=== PATIENT | female | born 1955 | race Caucasian/White ===

== ENCOUNTER → 2016-07-14 | Outpatient (CLI) | payer OTHER ==
--- NOTE | 2016-07-14 12:55 | MM ---
Reason for exam: screening (asymptomatic). Last mammogram was performed 2 years and 1 month ago. History: Patient is postmenopausal. Family history of breast cancer in paternal cousin at age 35, breast cancer in mother at age 44, and breast cancer in maternal grandmother. Left US Cyst Aspiration of the left breast, September 13, 2006. Right US Cyst Aspiration of the right breast, September 13, 2006. Benign cyst aspiration of the left breast, 2002. Physical Findings: A clinical breast exam by your physician is recommended on an annual basis and results should be correlated with mammographic findings. MG 3D Screening Mammo W/Cad Bilateral CC and MLO view(s) were taken. Prior study comparison: June 05, 2014, bilateral MG diagnostic mammo w CAD [facility]. March 12, 2013, CAD bilateral diagnostic mammogram. The breast tissue is heterogeneously dense. This may lower the sensitivity of mammography. Finding #1: Stable architectural distortion in the upper outer quadrant of the right breast. Finding #2: There are typically benign round calcifications in both breasts. There is no discrete abnormality. ASSESSMENT: Benign, BI-RAD 2 RECOMMENDATION: Routine screening mammogram of both breasts in 1 year.
== END | disposition home or self-care (01) ==
LOC: RADMAMWWP 08:52
PROVIDERS: ATTEND Surgery
DX: Z12.31 Encounter for screening mammogram for malignant neoplasm of breast (principal); Z80.3 Family history of malignant neoplasm of breast
CPT/HCPCS: 77063; G0202

== ENCOUNTER → 2018-10-25 | Outpatient (CLI) | payer OTHER ==
--- NOTE | 2018-10-26 11:37 | MM ---
Reason for exam: screening (asymptomatic). Last mammogram was performed 2 years and 3 months ago. History: Patient is postmenopausal. Family history of breast cancer in paternal cousin at age 35, breast cancer in mother at age 44, and breast cancer in maternal grandmother. Left US Cyst Aspiration of the left breast, September 13, 2006. Right US Cyst Aspiration of the right breast, September 13, 2006. Benign cyst aspiration of the left breast, 2002. Physical Findings: A clinical breast exam by your physician is recommended on an annual basis and results should be correlated with mammographic findings. MG 3D Screening Mammo W/Cad Bilateral CC, MLO, and XCCL view(s) were taken. Prior study comparison: July 14, 2016, bilateral MG 3d screening mammo w/cad. June 05, 2014, bilateral MG diagnostic mammo w CAD [facility]. The breast tissue is extremely dense which could obscure a lesion on mammography. There is no discrete abnormality. No significant changes when compared with prior studies. ASSESSMENT: Negative, BI-RAD 1 RECOMMENDATION: Routine screening mammogram of both breasts in 1 year.
== END | disposition home or self-care (01) ==
LOC: RADMAMWWP 07:19
PROVIDERS: ATTEND Family Medicine
DX: Z12.31 Encounter for screening mammogram for malignant neoplasm of breast (principal); Z80.3 Family history of malignant neoplasm of breast
CPT/HCPCS: 77063; 77067

== ENCOUNTER → 2019-10-29 | Outpatient (CLI) | payer OTHER ==
--- NOTE | 2019-10-30 09:31 | MM ---
Reason for exam: additional evaluation requested from prior study. Last mammogram was performed 1 year ago. History: Patient is postmenopausal. Family history of breast cancer in paternal cousin at age 35, breast cancer in mother at age 44, and breast cancer in maternal grandmother. Left US Cyst Aspiration of the left breast, September 13, 2006. Right US Cyst Aspiration of the right breast, September 13, 2006. Benign cyst aspiration of the left breast, 2002. Physical Findings: Nurse did not find any significant physical abnormalities on exam. MG 3D Diag Mammo W/Cad [facility] Bilateral CC and MLO view(s) were taken. Prior study comparison: October 25, 2018, bilateral MG 3d screening mammo w/cad. July 14, 2016, bilateral MG 3d screening mammo w/cad. The breast tissue is heterogeneously dense. This may lower the sensitivity of mammography. There are benign appearing waxing and waning wound oval bilateral masses, greater in the right breast, typically related to cysts in this patient with prior cyst aspirations. Left upper outer quadrant posterior depth focal asymmetry improves on additional views and appears similar to the 2017 exam, precautionary left upper outer quadrant ultrasound will be performed. These results were verbally communicated with the patient and result sheet given to the patient on 10/29/19. ASSESSMENT: Incomplete: need additional imaging evaluation, BI-RAD 0 RECOMMENDATION: Ultrasound of the left breast. (attention 8-9cm from the nipple, upper outer quadrant)
--- NOTE | 2019-10-30 09:33 | USB ---
Reason for exam: additional evaluation requested from abnormal screening. History: Patient is postmenopausal. Family history of breast cancer in paternal cousin at age 35, breast cancer in mother at age 44, and breast cancer in maternal grandmother. Left US Cyst Aspiration of the left breast, September 13, 2006. Right US Cyst Aspiration of the right breast, September 13, 2006. Benign cyst aspiration of the left breast, 2002. US Breast Limited LT Technologist: Shannon Little Left limited breast ultrasound including focal area of concern, retroareolar and axilla demonstrates a 0.3 x 0.3 x 0.2cm cystic lesion too small to characterize at 1 o'clock, 6 month follow up recommended, no cystic or solid lesion seen. These results were verbally communicated with the patient and result sheet given to the patient on 10/29/19. ASSESSMENT: Probably benign, BI-RAD 3 RECOMMENDATION: Follow-up diagnostic mammogram and ultrasound of the left breast in 6 months.
== END | disposition home or self-care (01) ==
LOC: RADMAMWWP 12:41
PROVIDERS: ATTEND Surgery
DX: R92.8 Other abnormal and inconclusive findings on diagnostic imaging of breast (principal)
CPT/HCPCS: 77062; 77066

== ENCOUNTER → 2020-06-16 | Outpatient (CLI) | payer OTHER ==
--- NOTE | 2020-06-16 09:00 | MM ---
Reason for exam: follow-up at short interval from prior study. Last mammogram was performed 8 months ago. History: Patient is postmenopausal. Family history of breast cancer in paternal cousin at age 35, breast cancer in mother at age 44, and breast cancer in maternal grandmother at age 58. Left US Cyst Aspiration of the left breast, September 13, 2006. Right US Cyst Aspiration of the right breast, September 13, 2006. Benign cyst aspiration of the left breast, 2002. Physical Findings: Nurse did not find any significant physical abnormalities on exam. MG 3D Diag Mammo W/Cad LT CC and MLO view(s) were taken of the left breast. Prior study comparison: October 29, 2019, bilateral MG 3d diag mammo w/cad [facility]. October 25, 2018, bilateral MG 3d screening mammo w/cad. The breast tissue is heterogeneously dense. This may lower the sensitivity of mammography. Central posterior CC view asymmetric densities stable for 6 months. These results were verbally communicated with the patient and result sheet given to the patient on 06/16/20. ASSESSMENT: Incomplete: need additional imaging evaluation, BI-RAD 0 RECOMMENDATION: Ultrasound of the left breast.
--- NOTE | 2020-06-16 09:01 | USB ---
Reason for exam: follow-up at short interval from prior study. History: Patient is postmenopausal. Family history of breast cancer in paternal cousin at age 35, breast cancer in mother at age 44, and breast cancer in maternal grandmother at age 58. Left US Cyst Aspiration of the left breast, September 13, 2006. Right US Cyst Aspiration of the right breast, September 13, 2006. Benign cyst aspiration of the left breast, 2002. US Breast Limited LT Technologist: Shannon Little Left limited breast ultrasound including focal area of concern, retroareolar and axilla demonstrates a 0.4 x 0.3 x 0.3cm circular, cystic, benign lesion at 1 o'clock. Continued follow up of the mammographic densities. Scanned 12-3 o'clock. These results were verbally communicated with the patient and result sheet given to the patient on 06/16/20. ASSESSMENT: Probably benign, BI-RAD 3 RECOMMENDATION: Follow-up diagnostic mammogram of both breasts in 6 months. Back on schedule for October 2020.
== END | disposition home or self-care (01) ==
LOC: RADMAMWWP 06:58
PROVIDERS: ATTEND Surgery
DX: R92.8 Other abnormal and inconclusive findings on diagnostic imaging of breast (principal)
CPT/HCPCS: 77061; 77065

== ENCOUNTER → 2020-12-23 | Outpatient (CLI) | payer OTHER ==
--- NOTE | 2020-12-23 11:40 | MM ---
Reason for exam: additional evaluation requested from prior study. Last mammogram was performed 6 months ago. History: Patient is postmenopausal. Family history of breast cancer in paternal cousin at age 35, breast cancer in mother at age 44, and breast cancer in maternal grandmother at age 58. Left US Cyst Aspiration of the left breast, September 13, 2006. Right US Cyst Aspiration of the right breast, September 13, 2006. Benign cyst aspiration of the left breast, 2002. Physical Findings: Nurse did not find any significant physical abnormalities on exam. MG 3D Diag Mammo W/Cad [facility] Bilateral CC and MLO view(s) were taken. Prior study comparison: June 16, 2020, left breast MG 3d diag mammo w/cad LT. October 29, 2019, bilateral MG 3d diag mammo w/cad [facility]. October 25, 2018, bilateral MG 3d screening mammo w/cad. July 14, 2016, bilateral MG 3d screening mammo w/cad. The breast tissue is heterogeneously dense. This may lower the sensitivity of mammography. Right 8mm lateral circumscribed nodule slowly enlarging, 9-10 o'clock suspect a cyst. Superior left nodualrity is unchanged for 6 months. These results were verbally communicated with the patient and result sheet given to the patient on 12/23/20. ASSESSMENT: Incomplete: need additional imaging evaluation, BI-RAD 0 RECOMMENDATION: Ultrasound of both breasts. (right 9-10 o'clock, left entire)
--- NOTE | 2020-12-23 11:42 | USB ---
Reason for exam: additional evaluation requested from abnormal screening. History: Patient is postmenopausal. Family history of breast cancer in paternal cousin at age 35, breast cancer in mother at age 44, and breast cancer in maternal grandmother at age 58. Left US Cyst Aspiration of the left breast, September 13, 2006. Right US Cyst Aspiration of the right breast, September 13, 2006. Benign cyst aspiration of the left breast, 2002. US Breast Limited BILAT Right limited breast ultrasound including focal area of concern, retroareolar and axilla demonstrates a 0.6 x 0.6 x 0.5cm cystic lesion at 10 o'clock, mammographic correlate, benign. Left complete breast ultrasound includes all four quadrants, the retroareolar region and axilla. Finding demonstrates a 0.5 x 0.3 x 0.3cm cystic, benign lesion at 1 o'clock and a 0.5 x 0.4 x 0.5cm cystic, benign lesion at 9 o'clock. We note a strong family history. These results were verbally communicated with the patient and result sheet given to the patient on 12/23/20. ASSESSMENT: Probably benign, BI-RAD 3 RECOMMENDATION: Follow-up diagnostic mammogram of both breasts in 1 year.
== END | disposition home or self-care (01) ==
LOC: RADMAMWWP 09:40
PROVIDERS: ATTEND Surgery
DX: R92.2 Inconclusive mammogram (principal); N60.01 Solitary cyst of right breast; N60.02 Solitary cyst of left breast; Z78.0 Asymptomatic menopausal state; Z80.3 Family history of malignant neoplasm of breast
CPT/HCPCS: 77062; 77066

== ENCOUNTER → 2022-01-06 | Outpatient (CLI) | payer OTHER, MEDICARE ==
--- NOTE | 2022-01-06 12:17 | MM ---
Reason for Exam: Additional evaluation requested from prior study. Last screening mammogram was performed 12 month(s) ago. Patient History: Menarche at age 14. First Full-Term at age 28. Postmenopausal. 2002, Benign Cyst Aspiration on the left side. 09/13/2006, Cyst Aspiration on the Left side. 09/13/2006, Cyst Aspiration on the Right side. Maternal grandmother had breast cancer, age 58. Paternal cousin had breast cancer, age 35. Mother had breast cancer, age 44. Risk Values: Dawn 5 year model risk: 3.0%. NCI Lifetime model risk: 10.6%. Prior Study Comparison: 12/15/1994 Screening Mammogram, Unknown. 03/12/2013 Bilateral Diagnostic Mammogram, [facility]. 07/14/2016 Bilateral Screening Mammogram, [facility]. 10/29/2019 Bilateral Diagnostic Mammogram, [facility]. 06/16/2020 Left Diagnostic Mammogram, [facility]. 12/23/2020 Bilateral Diagnostic Mammogram, [facility]. Tissue Density: The breast tissue is heterogeneously dense. This may lower the sensitivity of mammography. Findings: Analyzed By CAD. Some fluctuating nodularity is noted suggesting a benign etiology. Areas of asymmetric density especially on the left superiorly remain unchanged. There is a new circumscribed round mass measuring 1.1 cm 10:00 far posterior left breast for which further evaluation is recommended. Overall Assessment: Incomplete: need additional imaging evaluation, BI-RAD 0 Management: Diagnostic Breast Ultrasound of the left breast. Electronically signed and approved by: Shelton Castaneda M.D. Radiologist
--- NOTE | 2022-01-06 12:20 | USB ---
Reason for Exam: Additional evaluation requested from abnormal screening. Patient History: Menarche at age 14. First Full-Term at age 28. Postmenopausal. 2002, Benign Cyst Aspiration on the left side. 09/13/2006, Cyst Aspiration on the Left side. 09/13/2006, Cyst Aspiration on the Right side. Maternal grandmother had breast cancer, age 58. Paternal cousin had breast cancer, age 35. Mother had breast cancer, age 44. Risk Values: Dawn 5 year model risk: 3.0%. NCI Lifetime model risk: 10.6%. Prior Study Comparison: 10/29/2019 Bilateral Diagnostic Mammogram, [facility]. 06/16/2020 Left Diagnostic Mammogram, [facility]. 12/23/2020 Bilateral Diagnostic Mammogram, [facility]. Findings: The whole breast of the left breast, the axilla of the left breast and the retroareolar of the left breast were scanned. A left breast ultrasound was performed including standing of the subareolar region and axilla. Dense tissues are present throughout. There is a small benign 4 mm cyst at the 6:00 position. Additional benign cyst 11:00 position, 4 cm from the nipple. There is a larger, circumscribed, minimally lobulated hypoechoic lesion measuring 1.1 x 1.1 x 0.9 cm in the far periphery of the 10:00 position, 12 cm from the nipple. No internal vascularity. Some posterior through transmission is present.. Overall Assessment: Suspicious, BI-RAD 4 Management: Ultrasound Core Biopsy of the left breast. 1.1 cm mass lesion in the far periphery 10:00 left breast. This may represent a debris packed cyst. Other uncommon etiologies such as a mucinous variant is not excluded at this time. Electronically signed and approved by: Shelton Castaneda M.D. Radiologist
== END | disposition home or self-care (01) ==
LOC: RADMAMWWP 08:08
PROVIDERS: ATTEND Surgery
DX: N63.22 Unspecified lump in the left breast, upper inner quadrant (principal); Z78.0 Asymptomatic menopausal state; Z80.3 Family history of malignant neoplasm of breast
CPT/HCPCS: 77062; 77066

== ENCOUNTER → 2022-01-21 | Day surgery (SDC) | payer MEDICARE, OTHER ==
--- NOTE | 2022-01-29 11:57 | MM ---
Reason for Exam: Post Procedure Mammogram. Last screening mammogram was performed less than 1 month ago. Patient History: Menarche at age 14. First Full-Term at age 28. Postmenopausal. 2002, Benign Cyst Aspiration on the left side. 09/13/2006, Cyst Aspiration on the Left side. 09/13/2006, Cyst Aspiration on the Right side. Maternal grandmother had breast cancer, age 58. Paternal cousin had breast cancer, age 35. Mother had breast cancer, age 44. Risk Values: Dawn 5 year model risk: 3.0%. NCI Lifetime model risk: 10.6%. Prior Study Comparison: 07/14/2016 Bilateral Screening Mammogram, [facility]. 10/25/2018 Bilateral Screening Mammogram, [facility]. 10/29/2019 Bilateral Diagnostic Mammogram, [facility]. 06/16/2020 Left Diagnostic Mammogram, [facility]. 12/23/2020 Bilateral Diagnostic Mammogram, [facility]. 01/06/2022 Bilateral MG 3D diag mammo w/cad [facility], [facility]. Tissue Density: Left: The breast tissue is heterogeneously dense. This may lower the sensitivity of mammography. Pathology Description: Location: 10 o'clock. Marker Left Behind. Needle Type: [employer] Cores: 2 Gauge: 12 The procedure of ultrasound guided core biopsy was explained to the patient. Benefits, alternatives, and risks were discussed. An informed consent was then obtained. The patient was placed in supine positioning for imaging and for the procedure. Preprocedure ultrasound redemonstrates a round heterogeneous hypoechoic peripheral hypervascular near 1.0 cm lesion 10:00 position left breast 12 cm distance from nipple. The overlying skin was prepped and draped in usual sterile fashion. Lidocaine is used as anesthetic into the skin and subcutaneous tissue . Lidocaine with epinephrine is used and the deeper tissue up to area of concern in the left breast. Under ultrasound guidance, a vacuum assisted biopsy gun device was used to obtain 2 core samples. Following this, a biopsy clip was left in lesion. The patient tolerated the procedure well without any immediate complication. The patient was kept in the radiology department for short stay after the procedure and then discharged home in stable condition. Postprocedure mammogram: The patient was transferred to mammography for physician ordered post procedure mammogram for clip placement verification. Clip is noted successfully deployed centrally within the lesion Intermediate to high index of suspicion noted at time of procedure Impression: Successful, uncomplicated ultrasound guided core biopsy of area of concern in the left breast, full pathology results to follow. Pathology Results: Result: Malignant, Invasive ductal carcinoma. LEFT BREAST, 10:00 POSITION, ULTRASOUND GUIDED CORE BIOPSY: Invasive high grade ductal carcinoma, Grade 3 (See surgical pathology cancer case summary and comment). Overall Assessment: Malignant Assessment: MG diagnostic mammo LT wo CAD. - Left: Known biopsy proven malignancy, BI-RAD 6. Management: Surgical Consultation of the left breast. Electronically signed and approved by: Marcello Rosas M.D.
== END ==
LOC: RADUSWWP 12:48
PROVIDERS: ATTEND Surgery
DX: D05.12 Intraductal carcinoma in situ of left breast (principal); R92.8 Other abnormal and inconclusive findings on diagnostic imaging of breast
CPT/HCPCS: 88305; 88342; 88341; 77065; 19083; A4648

== ENCOUNTER 2022-02-22 06:44 | Day surgery (SDC) | payer OTHER ==
[2022-02-19 09:03] VITALS: BMI 25.6
[~2022-02-22 06:44] MED LIST: ACETAMINOPHEN TAB 500 MG TAB PO PRN; HEPARIN SODIUM,PORCINE/PF 5,000 UNIT/0.5 ML SYRINGE SQ PRN; Pre Op ABX Message 1 EACH MISC MISCELLANE ONE
[2022-02-22] MEDS ORDERED: HYDROmorphone 0.5 MG/0.5 ML SYRINGE IVP PRN (07:13)
[2022-02-22] MEDS ORDERED: ONDANSETRON 4 MG/2 ML VIAL IVP ONE (07:13)
[2022-02-22] MEDS ORDERED: LACTATED RINGERS 1,000 ML IV SCH (07:13)
[2022-02-22] MEDS ORDERED: DEXAMETHASONE SOD PHOSPHATE 4 MG/ML 1 ML VIAL IV ONE (07:13)
[2022-02-22] MEDS ORDERED: LIDOCAINE 1% (10MG/ML) FOR IV START INTRADERMA PRN (07:13)
[2022-02-22] MEDS ORDERED: ALPRAZolam 0.5 MG TAB ONE (07:31)
--- NOTE | 2022-02-22 07:43 | P.NAPBC ---
NAPBC Queries - NAPBC Queries Was patient's case review presented at [facility] tumor board? If no, comment.: Yes Was patient's pathology reviewed at [facility]? If no, comment.: Yes Was breast conservation surgery offered? If no, comment.: Yes Was sentinel node biopsy offered? If no, comment.: Yes Was diagnosis confirmed by percutaneous core biopsy? If no, comment.: Yes Is patient mastectomy patient?: No Was a preop referral to reconstructive surgeon offered?: Yes Clinical Stage: 1
--- NOTE | 2022-02-22 07:43 | P.HPADDEND ---
H&P Addendum H&P Addendum Date: 02/22/22 66-year-old female recently diagnosed with left breast cancer. She was seen by oncology. She was presented at our multidisciplinary tumor conference. Patient was offered mastectomy with or without reconstruction and breast conservation. She is interested in breast conservation at this time. Patient does not want to wait to make surgical incisions based on any genetic testing and is still undecided about genetic testing at this time. Patients is scheduled today for elective left breast lumpectomy with wire localization, sentinel lymph node biopsy and injection. Risks of bleeding, infection, scarring, seroma, nerve injury, recurrence, possible need for further surgery, lymphedema reviewed. She understands and wishes to proceed.
[2022-02-22] MEDS ORDERED: LIDOCAINE 1% INJ 10MG/ML (20 ML MDV) SQ ONE (08:17)
[2022-02-22] MEDS ORDERED: PROPOFOL 10 MG/ML 20 ML VIAL IV ONE (10:22)
[2022-02-22] MEDS ORDERED: LIDOCAINE 2% INJ 20 MG/ML (2 ML VIAL) ONE (10:22)
[2022-02-22] MEDS ORDERED: fentaNYL (PF) 50 MCG/ML 2 ML AMP ONE (10:22)
[2022-02-22] MEDS ORDERED: MIDAZOLAM 2 MG/2 ML VIAL ONE (10:22)
[2022-02-22] MEDS ORDERED: SUCCINYLCHOLINE CHLORIDE 200 MG/10 ML VIAL IV ONE (10:22)
[2022-02-22] MEDS ORDERED: BUPIVACAINE (PF) 0.25% 30 ML VIAL SQ ONE ×3 (10:24→10:53)
[2022-02-22] MEDS ORDERED: METHYLENE BLUE 10 MG/ML (10 ML VIAL) MISCELLANE ONE ×2 (10:25→10:45)
[2022-02-22] MEDS ORDERED: SODIUM CHLORIDE 0.9% 50 ML IV ONE (10:29)
[2022-02-22] MEDS ORDERED: LACTATED RINGERS 1,000 ML IV ONE (12:06)
--- NOTE | 2022-02-22 12:07 | USB ---
EXAM: US breast localization LT DATE OF EXAM: 02/22/2022 COMPARISON: 12/23/2020 Bilateral Diagnostic Mammogram, [facility]. 01/06/2022 Bilateral MG 3D diag mammo w/cad [facility], [facility]. 01/21/2022 Left MG diagnostic mammo LT wo CAD., [facility]. DESCRIPTION: The procedure of needle localization with wire placement and than surgical excision was explained to the patient. Benefits, alternatives, and risks were discussed. An informed consent was then obtaine d. The shortest pathway for procedure was chosen. Shortest pathway was medial approach. The overlying s kin was prepped and draped in usual sterile fashion. Lidocaine was used as anesthetic into the skin and subcutaneous tissue up to the level of area of concern. A 7 cm needle was used. It was placed v ia a lateral to medial approach under mammographic guidance. Subsequent 90 degrees mammogram show th e needle to be in satisfactory position relative to the targeted area. At this point, wire was place d and the needle was withdrawn. The wire was fixed to patient's skin. Images were marked for surgeo n. The patient tolerated the procedure well without any immediate complication. The patient was kept in the radiology department for short stay after the procedure and then taken to surgery for surgical e xcision. Targeted mass and wire are identified in specimen mammogram. The patient was kept in [facility] for short stay after the procedure and then discharged home in stable condition. Impression: Successful, uncomplicated needle localization with wire placement and surgical excision of suspicious mass in the left breast, full pathology results to follow.
[2022-02-22 12:14] VITALS: TEMP 97
[2022-02-22] MEDS ORDERED: NALOXONE 0.4 MG/ML 1 ML VIAL IV PRN (12:16)
[2022-02-22] MEDS ORDERED: ONDANSETRON 4 MG/2 ML VIAL IVP PRN (12:16)
[2022-02-22] MEDS ORDERED: HYDROcodone/APAP 5-325MG 1 EACH TAB PO PRN (12:16)
--- NOTE | 2022-02-22 12:20 | P.OP ---
Date of Procedure: 02/22/22 Procedure(s) Performed: PREOPERATIVE DIAGNOSIS: Left breast cancer POSTOPERATIVE DIAGNOSIS: Same PROCEDURE: Left Breast wire localization lumpectomy with sentinel lymph node biopsy SURGEON: Kelly EBL: Minimal ANESTHESIA: General COMPLICATIONS: None OPERATIVE PROCEDURE: Patient was placed on the operating room table in the supine position. 2 mL of methylene blue was injected into the subareolar space. The breast was then massaged for 5 minutes. The breast was prepped and draped in usual sterile fashion. The left axilla was addressed at that time. The hot spot in the left axilla was identified. A small curvilinear incision was made using the scalpel. Dissection down through the subcutaneous tissues took place using electrocautery. Using the neoprobe I identified a total of 3 sentinel lymph nodes. 2 of these were blue in color. The adjacent blue lymphatics were also removed and sent with our axillary contents. These had benign exam characteristics. These were all removed and sent to pathology for permanent sectioning. The surgical site was inspected and no bleeding was seen. The s ubcutaneous tissues were closed using 3-0 Vicryl sutures. The skin was closed using 4-0 Monocryl sutures. The wire entrance site was then addressed. This was present at the 11:00 location. A curvilinear incision was made inferior and lateral to the wire entrance site. I followed the wire down into the breast tissue. An adequate lumpectomy specimen then took place around the wire. Margins of 1.5-2 cm worth attempted to be achieved. Palpation of the specimen suggested that the posterior and lateral margins were somewhat close. I took an additional margin posteriorly and laterally and these margins were painted the appropriate color on the new margin side. The initial specimen was also painted the appropriate 6 colors. Clips were used to identify the lumpectomy cavity. The clip was confirmed to be within the lumpectomy specimen by radiology. The subcutaneous tissues were closed using 3-0 Vicryl sutures. The skin was closed using a running 4-0 Monocryl stitch. Skin glue was then applied. DISPOSITION: Stable to recovery room
[2022-02-22] MEDS ORDERED: HYDROmorphone 0.5 MG/0.5 ML SYRINGE IVP ONE (12:32)
[2022-02-22 14:59] VITALS: BP 142/81; PULSE 84; RESP 16
--- NOTE | 2022-02-22 16:43 | NM ---
EXAMINATION TYPE: NM sentinel node injection DATE OF EXAM: 02/22/2022 COMPARISON: Same day mammography and ultrasound. HISTORY: Left breast cancer TECHNIQUE AND FINDINGS: The procedure of sentinel lymph node injection was explained to the patient. The benefits, alternatives, and risks were discussed. An informed consent was then obtained. Overlying skin is cleaned with sterile alcohol. Following this, 485 uCi [id number] Tilmanocept was inject ed in the upper outer aspect of the left nipple intradermally. The patient tolerated the procedure well without any immediate complication. The patient was kept in the radiology department for short stay after the procedure and then taken to surgery for surgical p rocedure what is presumed intraoperative gamma probe will be used for sentinel lymph node detection. IMPRESSION: Left breast radiotracer injection for sentinel node localization as above.
== END 2022-02-22 15:20 | disposition home or self-care (01) ==
LOC: OR 06:44
PROVIDERS: ATTEND Surgery
DX: C50.912 Malignant neoplasm of unspecified site of left female breast (principal); N60.92 Unspecified benign mammary dysplasia of left breast; N60.12 Diffuse cystic mastopathy of left breast; E78.5 Hyperlipidemia, unspecified; Z80.3 Family history of malignant neoplasm of breast; K21.9 Gastro-esophageal reflux disease without esophagitis; Z79.899 Other long term (current) drug therapy; Z91.09 Other allergy status, other than to drugs and biological substances
CPT/HCPCS: 19301; 38525; 88342; 88307; 88341; 77065; 76098; 19285; 38792; A9520; J2250; J0330; J1100; J2405; J2001 ×2; Q9968; J3010; J2704; J1170; J1644

== ENCOUNTER → 2022-12-20 | Outpatient (CLI) | payer OTHER ==
--- NOTE | 2022-12-21 10:33 | BD ---
EXAMINATION TYPE: Axial Bone Density DATE OF EXAM: 12/20/2022 CLINICAL HISTORY: 67 years old Female. ICD-10 CODE: C50.212 CANCER LT BREAST Height: 61.25 Weight: 138.4 FRAX RISK QUESTIONS: Alcohol (3 or more units per day): no Family History (Parent hip fracture): no Glucocorticoids (More than 3mos): no History of Fracture in Adulthood: no Secondary Osteoporosis: 1. Type 1 Diabetes: no 2. Hyperthyroidism: no 3. Menopause before 45: no 4. Malnutrition: no 5. Chronic liver disease: no Rheumatoid Arthritis: no Current Tobacco Use: no RISK FACTORS HISTORY OF: Hip Fracture (Right/Left): no Spine Fracture: no History of Wrist Fracture: no Surgery to Spine/Hip(right/left)/Wrist (right/left): no Family History of Osteoporosis: no Active: yes Diet low in dairy products/other sources of calcium: yes Postmenopausal woman: yes Take estrogen and/or progesterone medications: no Lost more than 2 inches in height since high school: no Frequent falls: no Poor Health: no Hyperparathyroidism: no Adrenal Insufficiency: no MEDICATIONS: Prednisone or other steroids: no Thyroid Medications: no Osteoporosis Medications: no Additional Medications: Reflux Meds, Anastrozole, Vit D, Calcium Additional History: Breast 2021 with chemo and radiation EXAM MEASUREMENTS: Bone mineral densitometry was performed using the [employer] System. Bone mineral density as measured about the Lumbar spine is: ----- L1-L4(G/cm2): 0.835 T Score Values are as follows: ----- L1: -3.3 ----- L2: -3.5 ----- L3: -2.1 ----- L4: -2.8 ----- L1-L4: -2.9 Z Score Values are as follows: ----- L1: -1.6 ----- L2: -1.8 ----- L3: -0.4 ----- L4: -1.1 ----- L1-L4: -1.2 Bone mineral density has: decreased 13.2 % since study of: 11/19/2008 Bone mineral density about the R hip (g/cm2): 0.885 Bone mineral density about the L hip (g/cm2): 0.848 T Score values are as follows: -----R Neck: -2.0 -----L Neck: -2.3 -----R Total: -1.0 -----L Total: -1.3 Z Score values are as follows: -----R Neck: -0.4 -----L Neck: -0.7 -----R Total: 0.4 -----L Total: 0.1 Bone mineral density has: increased 0.1 % since study of: 11/19/2018 FRAX%s: The graph provided illustrates a 12.9% chance for a major osteoporotic fx and a 2.6% chance f or the hips probability for fx in 10 years time. IMPRESSION: Osteoporosis (T Score less than -2.5). There is increased fracture risk and therapy is usually indicated based on age. Re-Screen 1-2 years. NOTE: T-SCORE=SD OF THE YOUNG ADULT MEAN.
== END | disposition home or self-care (01) ==
LOC: RADBDWWP 15:36
PROVIDERS: ATTEND Internal Medicine
DX: C50.212 Malignant neoplasm of upper-inner quadrant of left female breast (principal); M81.0 Age-related osteoporosis without current pathological fracture; M85.89 Other specified disorders of bone density and structure, multiple sites; E78.5 Hyperlipidemia, unspecified; Z71.3 Dietary counseling and surveillance
CPT/HCPCS: 77080

== ENCOUNTER → 2023-01-12 | Outpatient (CLI) | payer OTHER ==
--- NOTE | 2023-01-12 10:22 | MM ---
Reason for Exam: Additional evaluation requested from abnormal screening. Last screening mammogram was performed 12 month(s) ago. Patient History: Menarche at age 14. First Full-Term at age 28. Postmenopausal. Breast cancer, left, age 66. Breast cancer, left, age 66. Previous chest radiation therapy at age 67. Previous chemotherapy at age 67. 02/22/2022, Lumpectomy on the Left side. 02/22/2022, Malignant US breast localization LT on the left side. 01/21/2022, Malignant US biopsy breast VAD LT on the left side. 2002, Benign Cyst Aspiration on the left side. 09/13/2006, Cyst Aspiration on the Left side. 09/13/2006, Cyst Aspiration on the Right side. Maternal grandmother had breast cancer, age 58. Paternal cousin had breast cancer, age 35. Mother had breast cancer, age 44. Prior Study Comparison: 12/15/1994 Screening Mammogram, Unknown. 10/04/1995 Screening Mammogram, Unknown. 06/05/2014 Bilateral Diagnostic Mammogram, [facility]. 07/14/2016 Bilateral Screening Mammogram, [facility] 10/25/2018 Bilateral Screening Mammogram, [facility]. 10/29/2019 Bilateral Diagnostic Mammogram, [facility]. 10/29/2019 Left Diagnostic Ultrasound, [facility]. 06/16/2020 Left Diagnostic Mammogram, [facility]. 06/16/2020 Left Diagnostic Ultrasound, [facility]. 12/23/2020 Bilateral Diagnostic Mammogram, [facility]. 12/23/2020 Bilateral Diagnostic Ultrasound, [facility]. 01/06/2022 Left US breast LT, [facility]. 01/06/2022 Bilateral MG 3D diag mammo w/cad CHELSIE, [facility]. 01/21/2022 Left MG diagnostic mammo LT wo CAD., [facility]. 02/22/2022 Left MG diagnostic mammo LT wo CAD., [facility]. Tissue Density: The breast tissue is extremely dense which could obscure a lesion on mammography. Findings: Analyzed By CAD. Pattern appears symmetrical and stable. Postbiopsy changes are within the left breast. Surgical skin marker utilized on the left breast. No significant interval changes are evident. No suspicious groups of microcalcifications, spiculated or lobular masses, architectural distortion or other secondary signs of malignancy are mammographically apparent. Overall Assessment: Benign, BI-RAD 2 Management: Diagnostic Mammogram of both breasts in 1 year. A negative mammogram report should not preclude additional follow up of suspicious palpable abnormalities. Patient should continue monthly self breast exam. A clinical breast exam by your physician is recommended on an annual basis and results should be correlated with mammographic findings. Electronically signed and approved by: Jose Elias Atkins D.O. Radiologis
== END | disposition home or self-care (01) ==
LOC: RADMAMWWP 08:52
PROVIDERS: ATTEND Surgery
DX: R92.8 Other abnormal and inconclusive findings on diagnostic imaging of breast (principal); Z78.0 Asymptomatic menopausal state; Z80.3 Family history of malignant neoplasm of breast
CPT/HCPCS: 77062; 77066

== ENCOUNTER → 2024-02-03 | Outpatient (CLI) | payer OTHER ==
--- NOTE | 2024-02-03 11:10 | MM ---
Reason for Exam: Follow-up at short interval from prior study. Last screening mammogram was performed less than 1 month ago. Patient History: Menarche at age 14. First Full-Term at age 28. Postmenopausal. Breast cancer, left, age 66. Breast cancer, left, age 66. Previous chest radiation therapy at age 67. Previous chemotherapy at age 67. 02/22/2022, Lumpectomy on the Left side. 02/22/2022, Malignant US breast localization LT on the left side. 01/21/2022, Malignant US biopsy breast VAD LT on the left side. 2002, Benign Cyst Aspiration on the left side. 09/13/2006, Cyst Aspiration on the Left side. 09/13/2006, Cyst Aspiration on the Right side. Maternal grandmother had breast cancer, age 58. Paternal cousin had breast cancer, age 35. Mother had breast cancer, age 44. Prior Study Comparison: 01/21/2022 Left MG diagnostic mammo LT wo CAD., [facility]. 02/22/2022 Left MG diagnostic mammo LT wo CAD., [facility]. 01/12/2023 Bilateral MG 3D diag mammo w/cad CHELSIE, [facility]. Tissue Density: Left: The breasts are heterogeneously dense, which may obscure small masses. Findings: Analyzed By CAD. Stable postoperative changes left breast. No evidence for mass or new area of distortion. No suspicious microcalcifications. Overall Assessment: Benign, BI-RAD 2 Management: Diagnostic Mammogram of both breasts in 1 year. . Results were given to the patient verbally at the time of exam. Patient should continue monthly self-breast exams. A clinical breast exam by your physician is recommended on an annual basis. This exam should not preclude additional follow-up of suspicious palpable abnormalities. Note on Dawn scores and lifetime risk: 1. A Dawn score greater than 3% is considered moderate risk. If this is the case, consider specialist referral to assess eligibility for a risk reducing agent. 2. If overall lifetime risk for the development of breast cancer is 20% or higher, the patient may qualify for future screening with alternating mammogram and breast MRI. Electronically signed and approved by: Benji Magana M.D. Radiologis
== END | disposition home or self-care (01) ==
LOC: RADMAMWWP 09:55
PROVIDERS: ATTEND Surgery
DX: R92.8 Other abnormal and inconclusive findings on diagnostic imaging of breast
CPT/HCPCS: 77061; 77065

== ENCOUNTER → 2024-08-22 | Outpatient (CLI) | payer OTHER ==
--- NOTE | 2024-08-22 15:27 | USB ---
Reason for Exam: Additional evaluation requested from prior study. Patient History: Menarche at age 14. First Full-Term at age 28. Postmenopausal. Breast cancer, left, age 66. Breast cancer, left, age 66. Previous chest radiation therapy at age 67. Previous chemotherapy at age 67. 02/22/2022, Lumpectomy on the Left side. 02/22/2022, Malignant US breast localization LT on the left side. 01/21/2022, Malignant US biopsy breast VAD LT on the left side. 2002, Benign Cyst Aspiration on the left side. 09/13/2006, Cyst Aspiration on the Left side. 09/13/2006, Cyst Aspiration on the Right side. Maternal grandmother had breast cancer, age 58. Paternal cousin had breast cancer, age 35. Mother had breast cancer, age 44. Technique: Method: Whole Breast Handheld. Doppler: Color. Patient Position: RPO. Prior Study Comparison: 01/12/2023 Bilateral MG 3D diag mammo w/cad CHELSIE, [facility]. 01/18/2024 Bilateral Diagnostic Mammogram, [facility]. 02/03/2024 Left MG 3D diag mammo w/cad LT, [facility]. Findings: The whole breast of the left breast, the periareolar of the left breast, the axilla of the left breast and the retroareolar of the left breast were scanned. Ultrasound of the left breast was performed from the 12:00 through the 11:00 positions including the retroareolar and axillary regions. There appear to be nodular islands of fibroglandular tissue however underlying mass is difficult to exclude. Mammographic correlation is advised. Overall Assessment: Incomplete: need additional imaging evaluation, BI-RAD 0 Management: Diagnostic Mammogram of the left breast. A clinical breast exam by your physician is recommended on an annual basis and results should be correlated with mammographic findings. This exam should not preclude additional follow-up of suspicious palpable abnormalities. Results were given to the patient verbally at the time of exam. [facility], , 08/22/2024 3:24 PM. Electronically signed and approved by: Benji Magana M.D. Radiologis
== END | disposition home or self-care (01) ==
LOC: RADUSWWP 14:50
PROVIDERS: ATTEND Internal Medicine
DX: C50.212 Malignant neoplasm of upper-inner quadrant of left female breast (principal); E78.5 Hyperlipidemia, unspecified; Z71.3 Dietary counseling and surveillance; Z85.3 Personal history of malignant neoplasm of breast; Z78.0 Asymptomatic menopausal state; Z80.3 Family history of malignant neoplasm of breast

== ENCOUNTER → 2024-09-05 | Outpatient (CLI) | payer OTHER ==
--- NOTE | 2024-09-05 11:40 | MM ---
Reason for Exam: Follow-up at short interval from prior study. Last screening mammogram was performed 8 month(s) ago. Patient History: Menarche at age 14. First Full-Term at age 28. Postmenopausal. Breast cancer, left, age 66. Breast cancer, left, age 66. Previous chest radiation therapy at age 67. Previous chemotherapy at age 67. 02/22/2022, Lumpectomy on the Left side. 02/22/2022, Malignant US breast localization LT on the left side. 01/21/2022, Malignant US biopsy breast VAD LT on the left side. 2002, Benign Cyst Aspiration on the left side. 09/13/2006, Cyst Aspiration on the Left side. 09/13/2006, Cyst Aspiration on the Right side. Maternal grandmother had breast cancer, age 58. Paternal cousin had breast cancer, age 35. Mother had breast cancer, age 44. Prior Study Comparison: 12/23/2020 Bilateral Diagnostic Mammogram, [facility]. 12/23/2020 Bilateral Diagnostic Ultrasound, [facility]. 01/06/2022 Left US breast LT, [facility]. 01/06/2022 Bilateral MG 3D diag mammo w/cad CHELSIE, [facility]. 01/21/2022 Left MG diagnostic mammo LT wo CAD., [facility]. 02/22/2022 Left MG diagnostic mammo LT wo CAD., [facility]. 01/12/2023 Bilateral MG 3D diag mammo w/cad CHELSIE, [facility]. 01/18/2024 Bilateral Diagnostic Mammogram, [facility]. 02/03/2024 Left MG 3D diag mammo w/cad LT, [facility]. 08/22/2024 Left US breast LT, [facility]. Tissue Density: Left: The breasts are heterogeneously dense, which may obscure small masses. Findings: Analyzed By CAD. No suspicious microcalcifications or masses seen. Post Operative changes of lumpectomy inner upper left breast far posteriorly. Overall Assessment: Benign, BI-RAD 2 Management: Diagnostic Mammogram of both breasts in 5 months. . Results were given to the patient verbally at the time of exam. Patient should continue monthly self-breast exams. A clinical breast exam by your physician is recommended on an annual basis. This exam should not preclude additional follow-up of suspicious palpable abnormalities. Note on Dawn scores and lifetime risk: 1. A Dawn score greater than 3% is considered moderate risk. If this is the case, consider specialist referral to assess eligibility for a risk reducing agent. 2. If overall lifetime risk for the development of breast cancer is 20% or higher, the patient may qualify for future screening with alternating mammogram and breast MRI. [facility], , 09/05/2024 11:37 AM. Electronically signed and approved by: Benji Magana M.D. Radiologis
== END | disposition home or self-care (01) ==
LOC: RADMAMWWP 10:51
PROVIDERS: ATTEND Surgery
DX: R92.8 Other abnormal and inconclusive findings on diagnostic imaging of breast (principal); R92.332 Mammographic heterogeneous density, left breast; Z98.890 Other specified postprocedural states; Z78.0 Asymptomatic menopausal state; Z80.3 Family history of malignant neoplasm of breast; Z85.3 Personal history of malignant neoplasm of breast
CPT/HCPCS: 77061; 77065